=== PATIENT | female | born 1985 | race Caucasian/White ===

== ENCOUNTER 2016-03-27 21:08 | Emergency (ER) | payer MEDICAID, OTHER ==
[~2016-03-27] VITALS: Ht 160 cm; Wt 42.0 kg
[~2016-03-27 21:08] MED LIST: ZITH250T PO
[2016-03-27 21:18] VITALS: BP 122/86; PULSE 91; RESP 18; TEMP 97.8; O2SAT 97
[2016-03-27] MEDS ORDERED: PERI0.126 SWISH-SPIT (21:35)
[2016-03-27] MEDS ORDERED: MAGICPED SWISH-SWAL (21:35)
[2016-03-27] MEDS ORDERED: DICL50TA3 PO (21:35)
--- NOTE | 2016-03-27 21:40 | PD ---
HPI Chief Complaint: Oral / Dental Pain or Problem Time Seen by Provider: 21:36 Travel History International Travel<30 days: No Contact w/Intl Traveler<30days: No Traveled to known affect area: No History of Present Illness HPI Patient is a 30-year-old female presenting with dental pain. There is a right upper tooth, wisdom teeth have been extracted. She states she's had problems with this tooth in the past and little pieces to break off periodically. None recently. She states she had acute pain began several hours prior. She used Tylenol and Orajel which helped only minimally. Pain radiates towards the jaw. She denies any bleeding or discharge. She denies any swelling,sore throat or difficulty swallowing or breathing. She denies fevers. She denies current . [facility] Past Medical History Medical History: Denies Significant Hx Diminished Hearing: No Immunizations Current: Yes ?: Not Ovarian Cysts: Yes (DRAINED IN 2002) Past Surgical History Abdominal Surgery: Yes (LAPAROSCOPY 2002 TO DRAIN OVARIAN CYSTS AND R/O ENDOMETRIOSIS) Section: Yes Other Surgery: Yes (BREAST AUGMENTATION) Social History Alcohol Use: No Tobacco Use: Yes (03/22 PPD) Substance Use: No Allergies-Medications (Allergen,Severity, Reaction): Coded Allergies: No Known Allergies (Verified , 03/27/16) Reported Meds & Prescriptions Reported Meds & Active Scripts Active Magic Mouthwash Pediatric/Adult Liq (Lidocaine/Diphenhydr/Alum/Mg/Simeth) 60 Ml Susp 10 Ml SWISH-SWAL ACHS Each 5 mL contains: Diphenydramine 4.5 mg,Viscous Lidocaine 2% 10 mg, Maalox Advanced Regular Strength 2.7 ml (Aluminum hydroxide 108 mg, Magnesium hydroxide 108 mg and Simethicone 10.8 mg) Peridex Liq (Chlorhexidine Gluconate (Mouth) Liq) 0.12% Soln 15 Ml SWISH-SPIT BID Diclofenac Sodium DR (Diclofenac Sodium) 50 Mg Tabdr 50 Mg PO BID Review of Systems General / Constitutional: No: Fever, Chills HENT: Positive: Dental Difficulties, No: Sore Throat, Neck Stiffness, Neck Pain, Gingival Bleeding, Earache Respiratory: No: Shortness of Breath Physical Exam Narrative GENERAL: Well-developed and well-nourished adult female in no acute distress. SKIN: Warm and dry. Good turgor without tenting. HEAD: Normocephalic and atraumatic. EYES: PERRL bilaterally, 5mm. EOMI bilaterally. No injection or icterus present. No proptosis. Lids without edema or erythema. ENT: Tooth #2 has proximal one half the tooth missing posteriorly secondary to caries. The tooth is not loose but is tender to percussion. No gingival edema or erythema. No drainage or bleeding. No buccal or sublingual masses. Buccal mucosa pink and moist. Oropharynx free of erythema, tonsillar hypertrophy, masses, swelling, asymmetry and exudates. Uvula midline and airway patent. NECK: Supple, no meningeal signs. Trachea midline, no JVD. No cervical or facial lymphadenopathy. CARDIOVASCULAR: Regular rate and rhythm without murmurs, rubs, clicks or gallops. RESPIRATORY: Clear to auscultation bilaterally with symmetrical rise and fall, no distress or use of accessory muscles. NEUROLOGIC: CN II-XII grossly intact. Awake and alert. Motor grossly within normal limits. Normal speech. PSYCHIATRIC: Appropriate mood and affect; insight and judgment normal. Data Data Last Documented VS Vital Signs Date Time Temp Pulse Resp B/P Pulse Ox O2 Delivery O2 Flow Rate FiO2 03/27/16 21:18 97.8 91 18 122/86 97 Orders Ketorolac Inj (Toradol Inj) (03/27/16 21:45) Acetamin-Hydrocod 325-7.5 Mg (Alexis 7.5 (03/27/16 21:45) MDM Medical Decision Making Medical Screen Exam Complete: Yes Emergency Medical Condition: Yes Differential Diagnosis Caries versus Periapical abscess versus cellulitis versus Tooth Fracture vs less likely Ludwigs Angina Narrative Course Patient is 30-year-old female presenting with dental pain. Likely secondary to caries, no evidence of infection on exam. Patient was given Toradol and Lortab here and a prescription for diclofenac, Magic mouthwash and Peridex. Recommend follow-up with a dentist on Tuesday.See discharge paperwork for further instructions. The plan was discussed with the patient who acknowledged their understanding and agreement. Reinforced the follow-up with primary care is critically important. Patient instructed on emergent conditions that should prompt return to ED. Diagnosis Primary Impression: Dental caries Patient Instructions: Dental Caries (ED), General Instructions Additional Instructions: Take medication as directed Use salt water gargles, Orajel, or other OTC products for topical pain relief Apply ice packs hourly as needed to help with swelling and pain Schedule with dentist EMILIA for definitive treatment Return to the ED for any acute worsening of symptoms Med/Other Pt SpecificInfo: Prescription(s) given Scripts Aoohpvlemuiwrpb-Jdzbwqtfq-Jhf-Alum-Simeth Liq (Magic Mouthwash Pediatric/Adult Liq)60 Ml Susp10 Ml SWISH-SWAL ACHS #120 ML Each 5 mL contains: Diphenydramine 4.5 mg,Viscous Lidocaine 2% 10 mg, Maalox Advanced Regular Strength 2.7 ml (Aluminum hydroxide 108 mg, Magnesium hydroxide 108 mg and Simethicone 10.8 mg) Prov:Steven Cantrell MD 03/27/16 Chlorhexidine Gluconate (Mouth) Liq (Peridex Liq)0.12% Soln15 Ml SWISH-SPIT BID #473 ML Prov:Steven Cantrell MD 03/27/[address] 50 Mg Tabdr50 Mg PO BID #14 TAB Prov:Steven Cantrell MD 03/27/16 Disposition: 01 DISCHARGE HOME Condition: Stable Jefe Euceda III Mar 27, 2016 21:40
[2016-03-27] MEDS ORDERED: ACETAMINOPHEN/HYDROcodone 325 MG/7.5 MG TAB PO ONE (21:45)
[2016-03-27] MEDS ORDERED: KETOROLAC TROMETHAMINE 60 MG/2 ML (IM) VIAL IM ONE (21:45)
== END 2016-03-27 22:17 | disposition home or self-care (01) ==
LOC: PHEFT 21:08
DX: K02.9 Dental caries, unspecified (principal); F17.210 Nicotine dependence, cigarettes, uncomplicated
CPT/HCPCS: 96372; 99282; J1885

== ENCOUNTER 2016-07-31 15:44 | Emergency (ER) | payer MEDICAID ==
[~2016-07-31] VITALS: Ht 160 cm; Wt 93.4 kg
[~2016-07-31 15:44] MED LIST changes: +DICL50TA3 PO; +MAGICPED SWISH-SWAL; +PERI0.126 SWISH-SPIT; -ZITH250T PO
[2016-07-31 15:55] VITALS: BP 108/73; PULSE 85; RESP 16; TEMP 99.3; O2SAT 99
--- NOTE | 2016-07-31 16:16 | PD ---
HPI Chief Complaint: Oral / Dental Pain or Problem Time Seen by Provider: 16:15 Travel History International Travel<30 days: No Contact w/Intl Traveler<30days: No Traveled to known affect area: No History of Present Illness HPI 30-year-old female presents the emergency department with broken tooth for several months with increasing pain for the last 3 days. Patient is noted to have a low-grade fever in triage. Patient states she has Magic mouthwash and Mobic at home which has not been helping. Patient is in the process of trying to find dental care. Pain radiated to the ear yesterday but not today. She denies difficulty swallowing. She has no other complaints. She has no known drug allergies. [facility] Past Medical History Diminished Hearing: No Immunizations Current: Yes ?: Not LMP: 2 weeks ago Ovarian Cysts: Yes (DRAINED IN 2002) Past Surgical History Abdominal Surgery: Yes (LAPAROSCOPY 2002 TO DRAIN OVARIAN CYSTS AND R/O ENDOMETRIOSIS) Section: Yes Other Surgery: Yes (BREAST AUGMENTATION) Social History Alcohol Use: No Tobacco Use: Yes (/ PPD) Substance Use: No Allergies-Medications (Allergen,Severity, Reaction): Coded Allergies: No Known Allergies (Verified , 07/31/16) Reported Meds & Prescriptions Reported Meds & Active Scripts Active Magic Mouthwash Pediatric/Adult Liq (Lidocaine/Diphenhydr/Alum/Mg/Simeth) 60 Ml Susp 10 Ml SWISH-SWAL ACHS Each 5 mL contains: Diphenydramine 4.5 mg,Viscous Lidocaine 2% 10 mg, Maalox Advanced Regular Strength 2.7 ml (Aluminum hydroxide 108 mg, Magnesium hydroxide 108 mg and Simethicone 10.8 mg) Peridex Liq (Chlorhexidine Gluconate (Mouth) Liq) 0.12% Soln 15 Ml SWISH-SPIT BID Diclofenac Sodium DR (Diclofenac Sodium) 50 Mg Tabdr 50 Mg PO BID Review of Systems Except as stated in HPI: all other systems reviewed are Neg General / Constitutional: No: Fever Eyes: No: Visual changes HENT: Positive: Dental Difficulties, No: Headaches, Gingival Bleeding Cardiovascular: No: Chest Pain or Discomfort Respiratory: No: Shortness of Breath Gastrointestinal: No: Abdominal Pain Genitourinary: No: Dysuria Musculoskeletal: No: Pain Skin: No Rash Neurologic: No: Weakness Psychiatric: No: Depression Endocrine: No: Polydipsia Hematologic/Lymphatic: No: Easy Bruising Physical Exam Narrative GENERAL: Patient appears in mild distress. SKIN: Warm and dry. Normal color. Normal turgor. HEAD: Atraumatic. Normocephalic. EYES: Pupils equal and round. No scleral icterus. No injection or drainage. ENT: No nasal bleeding or discharge. Mucous membranes pink and moist. Pharynx is clear. Airway is patent. Patient has a broken #1 tooth with localized without large cyst noted. NECK: Trachea midline. Supple and nontender. No Aftab's angina. CARDIO VASCULAR: Regular rate and rhythm. No murmurs gallops or rubs. RESPIRATORY: No accessory muscle use. Clear to auscultation. Breath sounds equal bilaterally. MUSCULOSKELETAL: Extremities without clubbing, cyanosis, or edema. No obvious deformities. NEUROLOGICAL: Awake and alert. No obvious cranial nerve deficits. Motor grossly within normal limits. Five out of 5 muscle strength in the arms and legs. Normal speech. PSYCHIATRIC: Appropriate mood and affect; insight and judgment normal. Data Data Last Documented VS Vital Signs Date Time Temp Pulse Resp B/P Pulse Ox O2 Delivery O2 Flow Rate FiO2 07/31/16 15:55 99.3 85 16 108/73 99 MDM Medical Decision Making Medical Screen Exam Complete: Yes Emergency Medical Condition: Yes Medical Record Reviewed: Yes Differential Diagnosis Dental caries. Dental pain. Dental abscess. Narrative Course Patient is medically stable at time of exam. Patient is given Toradol 60 mg IM. Patient is given her first dose of clindamycin 300 mg by mouth. Patient will be continued on clindamycin 300 mg 3 times a day 7 days. Patient should continue her Magic mouthwash that she has at home. Patient is given ibuprofen 800 mg 3 times daily with food #30. Patient is also to take extra strength Tylenol 500 mg 2 tabs every 6 hours when necessary pain #60. Patient is recommended to follow-up with a dentist as soon as possible. Patient can return the emergency Department with worsening symptoms if necessary. Diagnosis Primary Impression: Dental caries Referrals: Dentist Patient Instructions: Dental Abscess (ED), General Instructions Additional Instructions: Patient is given Toradol 60 mg IM. Patient is given her first dose of clindamycin 300 mg by mouth. Patient will be continued on clindamycin 300 mg 3 times a day 7 days. Patient should continue her Magic mouthwash that she has at home. Patient is given ibuprofen 800 mg 3 times daily with food #30. Patient is also to take extra strength Tylenol 500 mg 2 tabs every 6 hours when necessary pain #60. Patient is recommended to follow-up with a dentist as soon as possible. Patient can return the emergency Department with worsening symptoms if necessary. Med/Other Pt SpecificInfo: Prescription(s) given Disposition: 01 DISCHARGE HOME Condition: Stable Merritt Eduardo July 31, 2016 16:16
[2016-07-31] MEDS ORDERED: CLINDAMYCIN 150 MG CAP PO ONE (16:30)
[2016-07-31] MEDS ORDERED: EXTR500C PO (16:30)
[2016-07-31] MEDS ORDERED: IBUP800T23 PO (16:30)
[2016-07-31] MEDS ORDERED: KETOROLAC TROMETHAMINE 60 MG/2 ML (IM) VIAL IM ONE (16:30)
[2016-07-31] MEDS ORDERED: CLIN1CAP5 PO (16:30)
== END 2016-07-31 17:00 | disposition home or self-care (01) ==
LOC: PHEFT 15:44
DX: K02.9 Dental caries, unspecified (principal); F17.210 Nicotine dependence, cigarettes, uncomplicated
CPT/HCPCS: 96372; 99282; J1885

== ENCOUNTER 2017-01-12 20:15 | Emergency (ER) | payer MEDICAID ==
[~2017-01-12] VITALS: Ht 160 cm; Wt 41.9 kg
[~2017-01-12 20:15] MED LIST changes: +CLIN1CAP5 PO; +EXTR500C PO; +IBUP800T23 PO
[2017-01-12 20:20] VITALS: BP 122/58; PULSE 92; RESP 16; TEMP 97.9; O2SAT 98
[2017-01-12] MEDS ORDERED: CLAR5TAB9 PO (20:46)
[2017-01-12] MEDS ORDERED: AMOX500C PO (20:46)
--- NOTE | 2017-01-12 20:46 | PD ---
HPI Chief Complaint: Cold / Flu Symptoms Time Seen by Provider: 20:40 Travel History International Travel<30 days: No Contact w/Intl Traveler<30days: No Traveled to known affect area: No History of Present Illness HPI The patient is a 31-year-old female who presents to the emergency department for cough and cold symptoms of 3 weeks duration. The patient initially complained of nasal congestion, postnasal drip, and mild frontal headache. The patient now complains of a foul taste with her postnasal drip, dry nonproductive cough, and subjective fevers at home between 99 and 100, per her report. She does complain of pain above both eyes with her nasal drainage. She does note a mild sore throat, mostly secondary to postnasal drip. She does note a cough is dry and nonproductive but denies any chest pain or shortness of breath. She denies any nausea, vomiting, or abdominal pain. She does smoke cigarettes, just less than 1 pack of cigarettes per day. The patient does not see a primary physician. The patient is currently on control, denies . Symptoms are mild to moderate, possibly exacerbated by recent URI or underlying illness, and there are no current alleviating factors. PFSH Past Medical History Diminished Hearing: No Immunizations Current: Yes Tetanus Vaccination: Unknown Influenza Vaccination: No ?: Not Ovarian Cysts: Yes (DRAINED IN 2002) Past Surgical History Abdominal Surgery: Yes (LAPAROSCOPY 2002 TO DRAIN OVARIAN CYSTS AND R/O ENDOMETRIOSIS) Section: Yes Other Surgery: Yes (BREAST AUGMENTATION) Social History Alcohol Use: No Tobacco Use: Yes (/ PPD) Substance Use: No Allergies-Medications (Allergen,Severity, Reaction): Coded Allergies: No Known Allergies (Verified , 07/31/16) Reported Meds & Prescriptions Reported Meds & Active Scripts Active Ibuprofen 800 Mg Tab 800 Mg PO Q8H PRN Clindamycin (Clindamycin HCl) 150 Mg Cap 300 Mg PO Q6H 7 Days Acetaminophen Extra Strength (Acetaminophen) 500 Mg Cap 1,000 Mg PO Q6H PRN Magic Mouthwash Pediatric/Adult Liq (Lidocaine/Diphenhydr/Alum/Mg/Simeth) 60 Ml Susp 10 Ml SWISH-SWAL ACHS Each 5 mL contains: Diphenydramine 4.5 mg,Viscous Lidocaine 2% 10 mg, Maalox Advanced Regular Strength 2.7 ml (Aluminum hydroxide 108 mg, Magnesium hydroxide 108 mg and Simethicone 10.8 mg) Peridex Liq (Chlorhexidine Gluconate (Mouth) Liq) 0.12% Soln 15 Ml SWISH-SPIT BID Diclofenac Sodium DR (Diclofenac Sodium) 50 Mg Tabdr 50 Mg PO BID Review of Systems Except as stated in HPI: all other systems reviewed are Neg General / Constitutional: Positive: Fever HENT: Positive: Headaches, Sore Throat, Congestion Respiratory: Positive: Cough Gastrointestinal: No: Nausea, Vomiting, Abdominal Pain Musculoskeletal: No: Myalgias Physical Exam Narrative GENERAL: Awake, alert, nontoxic-appearing 31-year-old female who appears her stated age and is in no acute respiratory distress. SKIN: Focused skin assessment warm/dry. HEAD: Atraumatic. Normocephalic. EYES: Pupils equal and round. No scleral icterus. No injection or drainage. ENT: No nasal bleeding or discharge. Mucous membranes pink and moist. Cobblestoning of posterior oropharynx without exudate. TMs are dull bilateral but no bulging or erythema. EACs are clear. Tenderness bilaterally over the frontal sinuses, no tenderness of the maxillary sinuses. NECK: Trachea midline. No JVD. No significant cervical lymphadenopathy noted on exam. MUSCULOSKELETAL: No obvious deformities. No clubbing. No cyanosis. No edema. NEUROLOGICAL: Awake and alert. No obvious cranial nerve deficits. Motor grossly within normal limits. Normal speech. PSYCHIATRIC: Appropriate mood and affect; insight and judgment normal. Data Data Last Documented VS Vital Signs Date Time Temp Pulse Resp B/P (MAP) Pulse Ox O2 Delivery O2 Flow Rate FiO2 01/12/17 20:20 97.9 92 16 122/58 (79) 98 MDM Medical Decision Making Medical Screen Exam Complete: Yes Emergency Medical Condition: Yes Medical Record Reviewed: Yes Differential Diagnosis Differential diagnosis includes URI, viral syndrome, sinusitis, pharyngitis, bronchitis. Narrative Course The patient has a history of physical are consistent with sinusitis, since his been ongoing for 3 weeks and she complains of fever with headache. Therefore, patient will be treated with amoxicillin 3 times a day as well as Claritin-D. She is advised to stop smoking and the follow-up with a primary physician. She is advised to use backup control while on antibiotics as it may interfere with her oral contraceptive pills. Patient agrees and understands. She is stable for outpatient follow-up. Diagnosis Primary Impression: Sinusitis, acute Qualified Codes: J01.10 - Acute frontal sinusitis, unspecified Patient Instructions: General Instructions Additional Instructions: Medications as directed. Stop smoking. Use backup control while on antibiotics as they may interfere with your oral contraceptive pills. Return if symptoms worsen or progress. Med/Other Pt SpecificInfo: Prescription(s) given Scripts Loratadine-Pseudoephedrine 12 HR (Claritin-D 12 HR) 5-120 Mg Tab 1 TAB PO BID for Allergy Management for 10 Days, #20 TAB 0 Refills Prov: Can Bush MD 01/12/17 Amoxicillin (Amoxicillin) 500 Mg Cap 500 MG PO TID for Infection for 10 Days, CAP 0 Refills Prov: Can Bush MD 01/12/17 Disposition: 01 DISCHARGE HOME Condition: Stable Can Bush MD Jan 12, 2017 20:46
== END 2017-01-12 21:07 | disposition home or self-care (01) ==
LOC: PHED 20:15 → PHEFT 21:07
DX: J01.10 Acute frontal sinusitis, unspecified (principal); R09.81 Nasal congestion; R51 Headache; J02.9 Acute pharyngitis, unspecified; Z72.0 Tobacco use
CPT/HCPCS: 99284